=== PATIENT | female | born 1995 | race Caucasian/White ===

== ENCOUNTER → 2018-04-29 | Outpatient (REF) | payer OTHER | LOC: M SFHCLERA 13:43 | DX: N39.9 Disorder of urinary system, unspecified (principal) ==

== ENCOUNTER 2022-01-13 09:52 | Emergency (ER) | payer OTHER ==
[~2022-01-13] VITALS: Ht 162.6 cm; Wt 80.9 kg
[2022-01-13 09:53] VITALS: BP 133/90
== END 2022-01-13 14:10 | disposition left against medical advice (07) ==
LOC: M ED 09:52
DX: Z53.21 Procedure and treatment not carried out due to patient leaving prior to being seen by health care provider (principal)